=== PATIENT | male | born 1950 | race Two or more races ===

== ENCOUNTER 2023-06-06 09:57 | Day surgery (SDC) | payer OTHER ==
[2023-06-03 09:26] LABS: PH,URINE 7.5 (5.0-8.0); URINE APPEARANCE Clear; URINE BILIRRUBIN Negative (NEGATIVE); URINE BLOOD Negative; URINE COLOR Yellow; URINE GLUCOSE Negative (NEGATIVE); URINE LEUKOCYTE Negative; URINE NITRATE Negative; URINE PROTEIN Negative (NEGATIVE); URINE UROBILINOGEN 0.2 E.U./dl
[2023-06-03 09:30] LABS: URINE RBC 3.1 uL (0.0-20.8)
[2023-06-03 09:35] LABS: HEMATOCRIT 43.9 % (39.0-48.0); HEMOGLOBIN 14.8 g/dL (13-16.00); MEAN CELL VOLUME 85.1 fL (80.0-100.00); MEAN CORPUSCULAR HEMOGLOBIN 28.7 pg (27.00-32.0); MEAN CORPUSCULAR HGB CONC 33.7 g/dl (32.0-36.0); PLATELET COUNT 256 K/uL (150-450); RED BLOOD COUNT 5.16 M/uL (4.00-6.00)
[2023-06-03 09:37] LABS: URINE BACTERIA 1.2 uL (0.0-1933); URINE WBC 0.4 uL (0.0-23.2)
[2023-06-03 09:39] LABS: INR 1.03; PARTIAL THROMBOPLASTIN TIME 29.3 SECONDS (22.0-34.0); PROTHROMBIN TIME 10.8 SECONDS (9.0-11.5)
[2023-06-03 09:43] LABS: ALBUMIN 3.8 gm/dL (3.4-5.0); BILIRUBIN TOTAL 0.54 mg/dL (0.3-1.2); CALCIUM 9.4 mg/dL (8.5-10.1); CREATININE SERUM 0.87 mg/dL (0.70-1.30); GFR 85.54; GLOBULINA 3.7 G/DL (2.4-3.5); POTASSIUM 5.05 mEq/L (3.5-5.1); TOTAL PROTEIN 7.5 gm/dL (6.4-8.2)
[2023-06-06] MEDS ORDERED: TYLENOL ARTHRI650 MG PO (13:00)
[2023-06-06] MEDS ORDERED: TRAMADOL HCL50 MG PO (13:00)
[2023-06-06] MEDS ORDERED: MIRALAX17 GM PO (13:00)
[2023-06-06] MEDS ORDERED: KETO10TA2 PO (13:00)
== END 2023-06-06 21:40 | disposition home or self-care (01) ==
LOC: CIR.AMB 09:57
PROVIDERS: ATTEND Surgery
DX: K40.90 Unilateral inguinal hernia, without obstruction or gangrene, not specified as recurrent (principal); I10 Essential (primary) hypertension; Z88.6 Allergy status to analgesic agent; Z20.822 Contact with and (suspected) exposure to COVID-19
CPT/HCPCS: 49505; C1781